=== PATIENT | male | born 1965 | race Caucasian/White ===

== ENCOUNTER 2017-07-12 07:28 | Day surgery (SDC) | payer MEDICARE, OTHER ==
[~2017-07-12 07:28] MED LIST: ALBU90OI INH; AMOCLA875 PO; ASPI81CH; CHLO25B PO; CIPR500 PO; CYCL10 PO; DIAZ5 PO; ENAL20 PO; FAMO20 PO; GABA300 PO; GLIP2.5ER PO; GUAIFENESIN1200 MG PO; HYDACE10B PO; HYDACE5325 PO; LEVO750 PO; METF500 PO; METH5 PO; METO100ER PO; METO50ER; NAPR500 PO; NICO21TP TD; OMEP20ER PO; OXYACE7.5T PO; OXYC10TA19 PO; Prednisone20 MG PO; SULTRIDS PO; TRADJENTA5 MG
== END 2017-07-12 23:18 | disposition home or self-care (01) ==
LOC: WOUND 07:28
PROC: 0HBMXZZ Excision of Right Foot Skin, External Approach (ICD-10-PCS; principal; 2017-07-12)
DX: E11.621 Type 2 diabetes mellitus with foot ulcer (principal); E11.21 Type 2 diabetes mellitus with diabetic nephropathy; L97.519 Non-pressure chronic ulcer of other part of right foot with unspecified severity; I12.0 Hypertensive chronic kidney disease with stage 5 chronic kidney disease or end stage renal disease; F17.210 Nicotine dependence, cigarettes, uncomplicated; B18.2 Chronic viral hepatitis C; E11.22 Type 2 diabetes mellitus with diabetic chronic kidney disease; N18.6 End stage renal disease; K74.60 Unspecified cirrhosis of liver; E66.9 Obesity, unspecified
CPT/HCPCS: G0463

== ENCOUNTER 2017-07-26 00:35 | Day surgery (SDC) | payer MEDICARE, OTHER | END 2017-07-26 11:10 | disposition home or self-care (01) | LOC: WOUND 00:35 | DX: Z48.00 Encounter for change or removal of nonsurgical wound dressing (principal); E11.621 Type 2 diabetes mellitus with foot ulcer; L97.419 Non-pressure chronic ulcer of right heel and midfoot with unspecified severity; E11.21 Type 2 diabetes mellitus with diabetic nephropathy; I10 Essential (primary) hypertension; F17.218 Nicotine dependence, cigarettes, with other nicotine-induced disorders; B18.2 Chronic viral hepatitis C; N18.6 End stage renal disease; K74.60 Unspecified cirrhosis of liver; E66.9 Obesity, unspecified | CPT/HCPCS: G0463 ==

== ENCOUNTER 2017-08-09 09:45 | Day surgery (SDC) | payer MEDICARE, OTHER | END 2017-08-09 10:44 | disposition home or self-care (01) | LOC: WOUND 09:45 | PROC: 0HBMXZZ Excision of Right Foot Skin, External Approach (ICD-10-PCS; principal; 2017-08-09) | DX: E11.621 Type 2 diabetes mellitus with foot ulcer (principal); L97.519 Non-pressure chronic ulcer of other part of right foot with unspecified severity; E11.22 Type 2 diabetes mellitus with diabetic chronic kidney disease; I12.0 Hypertensive chronic kidney disease with stage 5 chronic kidney disease or end stage renal disease; K74.60 Unspecified cirrhosis of liver; F17.210 Nicotine dependence, cigarettes, uncomplicated | CPT/HCPCS: 87070; 87077; 87186; 87205; 93922 ==

== ENCOUNTER 2017-08-16 08:51 | Day surgery (SDC) | payer MEDICARE, OTHER | END 2017-08-16 10:17 | disposition home or self-care (01) | LOC: WOUND 08:51 | PROC: 0HBMXZZ Excision of Right Foot Skin, External Approach (ICD-10-PCS; principal; 2017-08-16) | DX: E11.621 Type 2 diabetes mellitus with foot ulcer (principal); E11.21 Type 2 diabetes mellitus with diabetic nephropathy; I10 Essential (primary) hypertension; F17.210 Nicotine dependence, cigarettes, uncomplicated; E11.22 Type 2 diabetes mellitus with diabetic chronic kidney disease; N18.9 Chronic kidney disease, unspecified; B18.2 Chronic viral hepatitis C; K74.60 Unspecified cirrhosis of liver; L97.519 Non-pressure chronic ulcer of other part of right foot with unspecified severity | CPT/HCPCS: G0463 ==

== ENCOUNTER 2017-09-06 00:55 | Day surgery (SDC) | payer MEDICARE, OTHER | END 2017-09-06 23:35 | disposition home or self-care (01) | LOC: WOUND 00:55 | PROC: 0HBMXZZ Excision of Right Foot Skin, External Approach (ICD-10-PCS; principal; 2017-09-06) | DX: E11.621 Type 2 diabetes mellitus with foot ulcer (principal); L97.811 Non-pressure chronic ulcer of other part of right lower leg limited to breakdown of skin; E11.21 Type 2 diabetes mellitus with diabetic nephropathy; F17.210 Nicotine dependence, cigarettes, uncomplicated; B18.2 Chronic viral hepatitis C; I12.0 Hypertensive chronic kidney disease with stage 5 chronic kidney disease or end stage renal disease; N18.6 End stage renal disease; K74.60 Unspecified cirrhosis of liver | CPT/HCPCS: G0463 ==

== ENCOUNTER 2017-09-27 09:00 | Day surgery (SDC) | payer MEDICARE, OTHER | END 2017-09-27 10:24 | disposition home or self-care (01) | LOC: WOUND 09:00 | PROC: 0HBMXZZ Excision of Right Foot Skin, External Approach (ICD-10-PCS; principal; 2017-09-27) | DX: E11.621 Type 2 diabetes mellitus with foot ulcer (principal); E11.21 Type 2 diabetes mellitus with diabetic nephropathy; I10 Essential (primary) hypertension; F17.210 Nicotine dependence, cigarettes, uncomplicated; B18.2 Chronic viral hepatitis C; E11.22 Type 2 diabetes mellitus with diabetic chronic kidney disease; N18.6 End stage renal disease; K74.60 Unspecified cirrhosis of liver; L97.511 Non-pressure chronic ulcer of other part of right foot limited to breakdown of skin | CPT/HCPCS: G0463 ==

== ENCOUNTER 2017-10-11 08:46 | Day surgery (SDC) | payer MEDICARE, OTHER | END 2017-10-11 23:06 | disposition home or self-care (01) | LOC: WOUND 08:46 | PROC: 0HBMXZZ Excision of Right Foot Skin, External Approach (ICD-10-PCS; principal; 2017-10-11) | DX: E11.621 Type 2 diabetes mellitus with foot ulcer (principal); E11.21 Type 2 diabetes mellitus with diabetic nephropathy; L97.511 Non-pressure chronic ulcer of other part of right foot limited to breakdown of skin; I12.0 Hypertensive chronic kidney disease with stage 5 chronic kidney disease or end stage renal disease; F17.218 Nicotine dependence, cigarettes, with other nicotine-induced disorders; B18.2 Chronic viral hepatitis C; E11.22 Type 2 diabetes mellitus with diabetic chronic kidney disease; N18.6 End stage renal disease; K74.60 Unspecified cirrhosis of liver | CPT/HCPCS: G0463 ==

== ENCOUNTER 2017-11-02 08:46 | Day surgery (SDC) | payer MEDICARE, OTHER | END 2017-11-02 10:26 | disposition home or self-care (01) | LOC: WOUND 08:46 | DX: E11.621 Type 2 diabetes mellitus with foot ulcer (principal); L97.511 Non-pressure chronic ulcer of other part of right foot limited to breakdown of skin; E11.21 Type 2 diabetes mellitus with diabetic nephropathy; F17.210 Nicotine dependence, cigarettes, uncomplicated; I12.0 Hypertensive chronic kidney disease with stage 5 chronic kidney disease or end stage renal disease; N18.6 End stage renal disease | CPT/HCPCS: G0463 ==

== ENCOUNTER 2018-09-28 00:35 | Day surgery (SDC) | payer MEDICARE, OTHER | END 2018-09-28 23:19 | disposition home or self-care (01) | LOC: WOUND 00:35 | DX: E11.621 Type 2 diabetes mellitus with foot ulcer (principal); L97.529 Non-pressure chronic ulcer of other part of left foot with unspecified severity; L89.892 Pressure ulcer of other site, stage 2; I10 Essential (primary) hypertension; G47.33 Obstructive sleep apnea (adult) (pediatric); E11.40 Type 2 diabetes mellitus with diabetic neuropathy, unspecified; G40.909 Epilepsy, unspecified, not intractable, without status epilepticus ==

== ENCOUNTER 2018-10-06 09:30 | Day surgery (SDC) | payer MEDICARE, OTHER | END 2018-10-06 23:01 | disposition home or self-care (01) | LOC: WOUND 09:30 | DX: L89.892 Pressure ulcer of other site, stage 2 (principal); L03.032 Cellulitis of left toe; E11.40 Type 2 diabetes mellitus with diabetic neuropathy, unspecified; I10 Essential (primary) hypertension; G47.33 Obstructive sleep apnea (adult) (pediatric) | CPT/HCPCS: G0463 ==

== ENCOUNTER → 2018-12-11 | Outpatient (CLI) | payer MEDICARE, OTHER ==
[2018-12-11 15:12] LABS: Protein, Urine Quantitative 24.8 mg/dL (0.0-11.9)
[2018-12-11 15:19] LABS: Microalbumin, Urine Quant. 21.4 mg/L (0.000-20.000)
== END | disposition home or self-care (01) ==
LOC: LAB 10:45 → LAB SHORT 10:45
PROVIDERS: Internal Medicine Nephrology
DX: E55.9 Vitamin D deficiency, unspecified (principal); N18.3 Chronic kidney disease, stage 3 (moderate); D63.1 Anemia in chronic kidney disease; N25.81 Secondary hyperparathyroidism of renal origin; E78.00 Pure hypercholesterolemia, unspecified; R76.9 Abnormal immunological finding in serum, unspecified; R94.5 Abnormal results of liver function studies; R94.6 Abnormal results of thyroid function studies
CPT/HCPCS: 81050; 82043; 82570; 84156

== ENCOUNTER → 2020-10-30 | Outpatient (CLI) | payer MEDICARE, OTHER | END | disposition home or self-care (01) | LOC: LAB 12:39 → LAB SHORT 12:39 | DX: E11.42 Type 2 diabetes mellitus with diabetic polyneuropathy (principal); E11.610 Type 2 diabetes mellitus with diabetic neuropathic arthropathy; E11.621 Type 2 diabetes mellitus with foot ulcer; L97.509 Non-pressure chronic ulcer of other part of unspecified foot with unspecified severity; L02.611 Cutaneous abscess of right foot; Z79.4 Long term (current) use of insulin | CPT/HCPCS: 87070; 87077; 87186; 87205 ==

== ENCOUNTER 2021-12-11 13:55 | Inpatient (IN) | payer MEDICARE, OTHER ==
[~2021-12-11] VITALS: Ht 195.6 cm; Wt 103.0 kg
[~2021-12-11 13:55] MED LIST changes: +Chantix1 MG PO; -METH5 PO; -METO100ER PO; -TRADJENTA5 MG
[2021-12-11 15:43] LABS: BASOPHILS ABSOLUTE AUTO 0.04 K/mm3 (0.00-0.23); BASOPHILS PERCENT AUTO 0 % (0-2); EOSINOPHILS ABSOLUTE AUTO 0.28 K/mm3 (0.00-0.68); EOSINOPHILS PERCENT AUTO 3 % (0-6); Hematocrit 44.2 % (37.0-53.0); Hemoglobin 14.9 g/dL (13.5-17.5); IMMATURE GRAN ABSOLUTE AUTO 0.04 K/mm3 (0.00-0.10); IMMATURE GRAN PERCENT AUTO 0 % (0-1); LYMPHOCYTES ABSOLUTE AUTO 2.17 K/mm3 (0.84-5.20); LYMPHOCYTES PERCENT AUTO 22 % (21-46); MONOCYTES PERCENT AUTO 8 % (4-13); Mean Corpuscular HGB 28.8 pg (26.0-34.0); Mean Corpuscular HGB Conc 33.7 g/dL (31.5-36.5); Mean Corpuscular Volume 85 fL (80-100); Mean Platelet Volume 9.5 fL (9.1-12.4); NEUTROPHILS ABSOLUTE AUTO 6.34 K/mm3 (1.96-9.15); NEUTROPHILS PERCENT AUTO 66 % (41-73); Platelet Count 261 K/mm3 (150-400); RDW Coefficient Variation 17.3 % (11.7-14.2); RDW Standard Deviation 54.8 fL (35.1-46.3); Red Blood Cell Count 5.18 M/mm3 (4.30-5.90); White Blood Cell Count 9.67 K/mm3 (4.00-11.30)
[2021-12-11 16:03] LABS: Albumin, Blood 3.9 g/dL (3.4-5.0); Bilirubin, Total 0.3 mg/dL (0.1-1.0); Calcium, Blood 8.8 mg/dL (8.5-10.1); Creatinine, Blood 6.22 mg/dL (0.60-1.20); Potassium, Blood 5.2 mmol/L (3.5-5.5); Total Protein, Blood 7.9 g/dL (6.4-8.2)
[2021-12-11] MEDS ORDERED: CELE200 PO (18:10)
[2021-12-11] MEDS ORDERED: Enalapril Malea20 MG PO (18:11)
[2021-12-11] MEDS ORDERED: CHLO25B PO (18:11)
[2021-12-11] MEDS ORDERED: CYCL10 PO (18:12)
[2021-12-11] MEDS ORDERED: GABA300 PO (18:12)
[2021-12-11] MEDS ORDERED: METO100 PO (18:13)
[2021-12-11] MEDS ORDERED: Glucophage 850850 MG PO (18:13)
[2021-12-11] MEDS ORDERED: METHADONE HCL10 M9 PO (18:14)
[2021-12-11 18:17] LABS: Source, Urine Clean Catch
[2021-12-11] MEDS ORDERED: ROXICODONE15 MG PO (18:17)
[2021-12-11] MEDS ORDERED: TRADJENTA5 MG PO (18:17)
[2021-12-11] MEDS ORDERED: GLIP2.5ER PO (18:18)
[2021-12-11] MEDS ORDERED: DEPO-TESTO200 MG/18 IM (18:19)
[2021-12-11] MEDS ORDERED: OMEP20ER PO (18:19)
[2021-12-11] MEDS ORDERED: Viagra100 MG PO (18:24)
[2021-12-11 18:25] LABS: Appearance, Urine Clear (Clear); Bilirubin, Urine Neg (Neg); Blood, Urine Neg (Neg); Glucose Qualitative, Urine Neg (Neg); Ketones, Urine Neg (Neg); Leukocyte Esterase, Urine Neg (Neg); Nitrite, Urine Neg (Neg); Protein, Urine Neg (Neg); Specific Gravity, Urine 1.015 (1.003-1.022); Urobilinogen, Urine NORM (Normal)
[2021-12-11 18:35] LABS: Color, Urine Pale Yellow (P-Yellow)
[2021-12-12 05:07] LABS: BASOPHILS ABSOLUTE AUTO 0.03 K/mm3 (0.00-0.23); BASOPHILS PERCENT AUTO 0 % (0-2); EOSINOPHILS ABSOLUTE AUTO 0.34 K/mm3 (0.00-0.68); EOSINOPHILS PERCENT AUTO 5 % (0-6); Hematocrit 41.8 % (37.0-53.0); Hemoglobin 13.9 g/dL (13.5-17.5); IMMATURE GRAN ABSOLUTE AUTO 0.03 K/mm3 (0.00-0.10); IMMATURE GRAN PERCENT AUTO 0 % (0-1); LYMPHOCYTES ABSOLUTE AUTO 1.68 K/mm3 (0.84-5.20); LYMPHOCYTES PERCENT AUTO 22 % (21-46); MONOCYTES ABSOLUTE AUTO 0.71 K/mm3 (0.16-1.47); MONOCYTES PERCENT AUTO 9 % (4-13); Mean Corpuscular HGB 28.7 pg (26.0-34.0); Mean Corpuscular HGB Conc 33.3 g/dL (31.5-36.5); Mean Corpuscular Volume 86 fL (80-100); Mean Platelet Volume 9.6 fL (9.1-12.4); NEUTROPHILS ABSOLUTE AUTO 4.85 K/mm3 (1.96-9.15); NEUTROPHILS PERCENT AUTO 63 % (41-73); Platelet Count 202 K/mm3 (150-400); RDW Coefficient Variation 17.3 % (11.7-14.2); RDW Standard Deviation 54.7 fL (35.1-46.3); Red Blood Cell Count 4.85 M/mm3 (4.30-5.90); White Blood Cell Count 7.64 K/mm3 (4.00-11.30)
[2021-12-12 05:34] LABS: Alanine Aminotransfer (ALT/SGP 18 U/L (12-78); Albumin, Blood 3.2 g/dL (3.4-5.0); Alk Phos 73 U/L (50-136); Anion Gap 6 mmol/L (6-16); Aspartate Aminotrans (AST/SGOT 18 U/L (12-37); Bilirubin, Total 0.2 mg/dL (0.1-1.0); Blood Urea Nitrogen 46 mg/dL (8-24); Bun/Creatinine Ratio 12.3 (12.0-20.0); CO2, Blood 25 mmol/L (21-32); Calcium, Blood 7.7 mg/dL (8.5-10.1); Chloride, Blood 103 mmol/L (98-108); Creatinine, Blood 3.75 mg/dL (0.60-1.20); Globulin, Blood 3.3 g/dL (2.2-4.0); Glomerular Filtration Rate 18 (60-); Glucose, Blood 99 mg/dL (70-99); Magnesium, Blood 3.4 mg/dL (1.6-2.4); Potassium, Blood 4.8 mmol/L (3.5-5.5); Sodium, Blood 134 mmol/L (136-145); Total Protein, Blood 6.5 g/dL (6.4-8.2)
[2021-12-12 16:24] LABS: Albumin, Blood 3.3 g/dL (3.4-5.0); Anion Gap 3 mmol/L (6-16); Blood Urea Nitrogen 35 mg/dL (8-24); Bun/Creatinine Ratio 13.5 (12.0-20.0); CO2, Blood 26 mmol/L (21-32); Calcium, Blood 8.2 mg/dL (8.5-10.1); Chloride, Blood 106 mmol/L (98-108); Glomerular Filtration Rate 28 (60-); Glucose, Blood 117 mg/dL (70-99); Magnesium, Blood 2.7 mg/dL (1.6-2.4); Potassium, Blood 4.8 mmol/L (3.5-5.5); Sodium, Blood 135 mmol/L (136-145)
--- NOTE | 2021-12-12 17:05 | NUR ---
SHIFT SUMMARY- PT INDEPENDANT IN ROOM, FAMILY AT BEDSIDE. PT INFUSING NS, SEE EMAR THROUGHOUT SHIFT. VSS. A&O X4. PT C/O PAIN MEDICATED PER EMAR. PT RESTING NOW WITH CALL LIGHT IN REACH AND BED IN LOWEST POSITION.
[2021-12-12] MEDS ORDERED: NICO21TP TOP (17:41)
[2021-12-12] MEDS ORDERED: Acetaminophen325 M1 PO (17:41)
[2021-12-12] MEDS ORDERED: TAMS.4ER PO (17:43)
--- NOTE | 2021-12-12 18:41 | NUR ---
PT D/C WITH FAMILY, PAPERWORK IN HAND. ALL BELONGINGS WITH PT. TRANSPORTED VIA WHEELCHAIR TO [facility].
== END 2021-12-12 18:26 | disposition home or self-care (01) | DRG 683 ==
LOC: ER 13:55 → MEDS 13:56
PROVIDERS: Physician Assistant; ADMIT Family Medicine
DX: N17.9 Acute kidney failure, unspecified (principal); E87.1 Hypo-osmolality and hyponatremia; N18.4 Chronic kidney disease, stage 4 (severe); E11.22 Type 2 diabetes mellitus with diabetic chronic kidney disease; E87.5 Hyperkalemia; F17.210 Nicotine dependence, cigarettes, uncomplicated; N40.1 Benign prostatic hyperplasia with lower urinary tract symptoms; R33.8 Other retention of urine; E29.1 Testicular hypofunction; B19.20 Unspecified viral hepatitis C without hepatic coma; Z98.890 Other specified postprocedural states; Z79.899 Other long term (current) drug therapy; Z79.84 Long term (current) use of oral hypoglycemic drugs; I12.9 Hypertensive chronic kidney disease with stage 1 through stage 4 chronic kidney disease, or unspecified chronic kidney disease; F12.90 Cannabis use, unspecified, uncomplicated; E11.40 Type 2 diabetes mellitus with diabetic neuropathy, unspecified; E83.42 Hypomagnesemia; E86.0 Dehydration
CPT/HCPCS: 36415; 76770; 80048; 80053; 80069; 81003; 82947; 83036; 83690; 83735; 83880; 84153; 85025; 93005; 93010; 96360; 96361; 96372; 99284-25; A9270; G0378; J1644; J7030

== ENCOUNTER 2022-11-14 12:46 | Emergency (ER) | payer MEDICARE, OTHER ==
[~2022-11-14] VITALS: Ht 195.6 cm; Wt 104.3 kg
[~2022-11-14 12:46] MED LIST changes: +Acetaminophen325 M1 PO; +CELE200 PO; +DEPO-TESTO200 MG/18 IM; +Enalapril Malea20 MG PO; +Glucophage 850850 MG PO; +METHADONE HCL10 M9 PO; +METO100 PO; +NICO21TP TOP; +ROXICODONE15 MG PO; +TAMS.4ER PO; +TRADJENTA5 MG PO; +Viagra100 MG PO
[2022-11-14 13:30] LABS: BASOPHILS ABSOLUTE AUTO 0.03 K/mm3 (0.00-0.23); BASOPHILS PERCENT AUTO 0 % (0-2); EOSINOPHILS ABSOLUTE AUTO 0.18 K/mm3 (0.00-0.68); EOSINOPHILS PERCENT AUTO 2 % (0-6); Hematocrit 43.7 % (37.0-53.0); Hemoglobin 14.4 g/dL (13.5-17.5); IMMATURE GRAN ABSOLUTE AUTO 0.04 K/mm3 (0.00-0.10); IMMATURE GRAN PERCENT AUTO 1 % (0-1); LYMPHOCYTES ABSOLUTE AUTO 0.69 K/mm3 (0.84-5.20); LYMPHOCYTES PERCENT AUTO 8 % (21-46); MONOCYTES PERCENT AUTO 2 % (4-13); Mean Corpuscular HGB 27.7 pg (26.0-34.0); Mean Corpuscular Volume 84 fL (80-100); Mean Platelet Volume 9.6 fL (9.1-12.4); NEUTROPHILS ABSOLUTE AUTO 7.25 K/mm3 (1.96-9.15); NEUTROPHILS PERCENT AUTO 86 % (41-73); Platelet Count 228 K/mm3 (150-400); RDW Coefficient Variation 16.7 % (11.7-14.2); RDW Standard Deviation 51.2 fL (35.1-46.3); Red Blood Cell Count 5.19 M/mm3 (4.30-5.90); White Blood Cell Count 8.39 K/mm3 (4.00-11.30)
[2022-11-14 13:52] LABS: Albumin, Blood 3.9 g/dL (3.4-5.0); Bilirubin, Total 0.3 mg/dL (0.1-1.0); Bun/Creatinine Ratio 10.8 (12.0-20.0); Creatinine, Blood 1.76 mg/dL (0.60-1.20); Potassium, Blood 5.2 mmol/L (3.5-5.5); Total Protein, Blood 7.9 g/dL (6.4-8.2)
[2022-11-14 14:00] VITALS: BP 136/77
[2022-11-14] MEDS ORDERED: Flonase 0.05% N16 GM (14:36)
[2022-11-14] MEDS ORDERED: ALLEGRA ALLERGY60 MG PO (14:36)
[2022-11-14] MEDS ORDERED: Mupirocin22 GM TOP (14:36)
== END 2022-11-14 14:44 | disposition home or self-care (01) ==
LOC: ER 12:46
PROVIDERS: Emergency Medicine
DX: J30.9 Allergic rhinitis, unspecified (principal); Z79.1 Long term (current) use of non-steroidal anti-inflammatories (NSAID); F17.210 Nicotine dependence, cigarettes, uncomplicated; I12.9 Hypertensive chronic kidney disease with stage 1 through stage 4 chronic kidney disease, or unspecified chronic kidney disease; E11.22 Type 2 diabetes mellitus with diabetic chronic kidney disease; N18.30 Chronic kidney disease, stage 3 unspecified; E11.42 Type 2 diabetes mellitus with diabetic polyneuropathy; Z86.19 Personal history of other infectious and parasitic diseases
CPT/HCPCS: 80053; 85025; 99283

== ENCOUNTER 2022-12-02 03:43 | Day surgery (SDC) | payer MEDICARE, OTHER ==
[~2022-12-02 03:43] MED LIST changes: +ALLEGRA ALLERGY60 MG PO; +Flonase 0.05% N16 GM; +Mupirocin22 GM TOP
== END 2022-12-02 22:59 | disposition home or self-care (01) ==
LOC: WOUND 03:43
DX: T23.031D Burn of unspecified degree of multiple right fingers (nail), not including thumb, subsequent encounter (principal); E11.21 Type 2 diabetes mellitus with diabetic nephropathy; E11.51 Type 2 diabetes mellitus with diabetic peripheral angiopathy without gangrene; I10 Essential (primary) hypertension; G47.33 Obstructive sleep apnea (adult) (pediatric); Z72.0 Tobacco use
CPT/HCPCS: 99406; A9270; G0463

== ENCOUNTER 2023-01-29 15:39 | Emergency (ER) | payer MEDICARE, OTHER ==
[~2023-01-29] VITALS: Ht 195.6 cm; Wt 102.1 kg
[2023-01-29 15:47] VITALS: BP 99/75
== END 2023-01-29 18:36 | disposition home or self-care (01) ==
LOC: ER 15:39
DX: S81.811A Laceration without foreign body, right lower leg, initial encounter (principal); E11.9 Type 2 diabetes mellitus without complications; I10 Essential (primary) hypertension; F17.210 Nicotine dependence, cigarettes, uncomplicated; W26.9XXA Contact with unspecified sharp object(s), initial encounter; Z79.899 Other long term (current) drug therapy
CPT/HCPCS: 12004; 90471; 90715; 99282-25

== ENCOUNTER 2023-07-04 15:02 | Inpatient (IN) | payer MEDICARE, OTHER ==
[~2023-07-04] VITALS: Ht 195.6 cm; Wt 108.0 kg
[2023-07-04 16:34] LABS: BASOPHILS ABSOLUTE AUTO 0.02 K/mm3 (0.00-0.23); BASOPHILS PERCENT AUTO 0 % (0-2); EOSINOPHILS ABSOLUTE AUTO 0.01 K/mm3 (0.00-0.68); EOSINOPHILS PERCENT AUTO 0 % (0-6); Hematocrit 35.9 % (37.0-53.0); Hemoglobin 10.8 g/dL (13.5-17.5); IMMATURE GRAN ABSOLUTE AUTO 0.07 K/mm3 (0.00-0.10); IMMATURE GRAN PERCENT AUTO 1 % (0-1); LYMPHOCYTES ABSOLUTE AUTO 0.67 K/mm3 (0.84-5.20); LYMPHOCYTES PERCENT AUTO 6 % (21-46); MONOCYTES ABSOLUTE AUTO 0.61 K/mm3 (0.16-1.47); MONOCYTES PERCENT AUTO 6 % (4-13); Mean Corpuscular HGB 23.7 pg (26.0-34.0); Mean Corpuscular HGB Conc 30.1 g/dL (31.5-36.5); Mean Corpuscular Volume 79 fL (80-100); Mean Platelet Volume 9.3 fL (9.1-12.4); NEUTROPHILS ABSOLUTE AUTO 9.43 K/mm3 (1.96-9.15); NEUTROPHILS PERCENT AUTO 87 % (41-73); Platelet Count 292 K/mm3 (150-400); RDW Coefficient Variation 18.3 % (11.7-14.2); RDW Standard Deviation 52.2 fL (35.1-46.3); Red Blood Cell Count 4.56 M/mm3 (4.30-5.90); White Blood Cell Count 10.81 K/mm3 (4.00-11.30)
[2023-07-04 16:58] LABS: Albumin, Blood 3.5 g/dL (3.4-5.0); Albumin/Globulin Ratio 0.8 (0.8-1.8); Bilirubin, Total 0.4 mg/dL (0.1-1.0); Bun/Creatinine Ratio 10.9 (12.0-20.0); Calcium, Blood 9.2 mg/dL (8.5-10.1); Creatinine, Blood 1.74 mg/dL (0.60-1.20); Globulin, Blood 4.5 g/dL (2.2-4.0); Potassium, Blood 4.8 mmol/L (3.5-5.5)
[2023-07-04] MEDS ORDERED: OxyCODONE HCL 5 MG TAB PO ONE (22:25)
[2023-07-04] MEDS ORDERED: Ketorolac Tromethamine 30mg Vial IV ONE (22:25)
[2023-07-04] MEDS ORDERED: CeFAZolin 1000MG in D5W 50 ML IV ONE (23:25)
[2023-07-04] MEDS ORDERED: CeFAZolin Sodium 1,000 MG in NS 50 ML IV ONE (23:35)
[2023-07-04] MEDS ORDERED: Acetaminophen 325 MG TABLET PO PRN (23:40)
[2023-07-04] MEDS ORDERED: Ondansetron HCl 2 MG / ML 2ML Vial IV PRN (23:45)
[2023-07-04] MEDS ORDERED: MethylPREDNISolone Sod Succ 125 MG Vial IV ONE (23:45)
[2023-07-04] MEDS ORDERED: Nicotine 21 MG PATCH TOP ONE (23:45)
[2023-07-04] MEDS ORDERED: FentaNYL Citrate 50 MCG/ML 2 ML Injection IV PRN (23:45)
[2023-07-04] MEDS ORDERED: FLU VACC QS2023-24(6MOS UP)/PF 60 MCG/0.5 ML SYRINGE IM ONE (23:45)
[2023-07-05] VITALS (12 sets, daily range): BP systolic 111–188; BP diastolic 58–104
[2023-07-05 00:23] LABS: BASOPHILS ABSOLUTE AUTO 0.02 K/mm3 (0.00-0.23); BASOPHILS PERCENT AUTO 0 % (0-2); EOSINOPHILS ABSOLUTE AUTO 0.03 K/mm3 (0.00-0.68); EOSINOPHILS PERCENT AUTO 0 % (0-6); Hematocrit 34.2 % (37.0-53.0); Hemoglobin 10.4 g/dL (13.5-17.5); IMMATURE GRAN ABSOLUTE AUTO 0.04 K/mm3 (0.00-0.10); IMMATURE GRAN PERCENT AUTO 0 % (0-1); LYMPHOCYTES ABSOLUTE AUTO 1.59 K/mm3 (0.84-5.20); LYMPHOCYTES PERCENT AUTO 16 % (21-46); MONOCYTES ABSOLUTE AUTO 0.93 K/mm3 (0.16-1.47); MONOCYTES PERCENT AUTO 9 % (4-13); Mean Corpuscular HGB 23.5 pg (26.0-34.0); Mean Corpuscular HGB Conc 30.4 g/dL (31.5-36.5); Mean Corpuscular Volume 77 fL (80-100); NEUTROPHILS ABSOLUTE AUTO 7.68 K/mm3 (1.96-9.15); NEUTROPHILS PERCENT AUTO 75 % (41-73); Platelet Count 275 K/mm3 (150-400); RDW Coefficient Variation 18.3 % (11.7-14.2); RDW Standard Deviation 50.3 fL (35.1-46.3); Red Blood Cell Count 4.42 M/mm3 (4.30-5.90); White Blood Cell Count 10.29 K/mm3 (4.00-11.30)
[2023-07-05 00:44] LABS: Albumin, Blood 3.3 g/dL (3.4-5.0); Albumin/Globulin Ratio 0.8 (0.8-1.8); Bilirubin, Total 0.5 mg/dL (0.1-1.0); Bun/Creatinine Ratio 10.9 (12.0-20.0); Calcium, Blood 8.9 mg/dL (8.5-10.1); Creatinine, Blood 1.65 mg/dL (0.60-1.20); Globulin, Blood 4.3 g/dL (2.2-4.0); Potassium, Blood 4.6 mmol/L (3.5-5.5); Total Protein, Blood 7.6 g/dL (6.4-8.2)
[2023-07-05] MEDS ORDERED: NS 1,000 ML IV SCH (00:45)
[2023-07-05] MEDS ORDERED: HYDROmorphone HCl/Pf 1MG SYR IV ONE (00:50)
[2023-07-05] MEDS ORDERED: DEPO-TESTO200 MG/18 IM (02:04)
[2023-07-05] MEDS ORDERED: Glucophage 850850 MG PO (02:07)
[2023-07-05] MEDS ORDERED: FUROSEMIDE20 MG PO (02:10)
[2023-07-05] MEDS ORDERED: Mobic15 MG PO (02:11)
--- NOTE | 2023-07-05 03:54 | NUR ---
DR CONTRERAS ORDERED ORTHO CONSULT RE RIGHT HAND. CALL PLACED TO MD ANS SERVICE. "[facility]" TO NOTIFY .
--- NOTE | 2023-07-05 04:00 | NUR ---
DEV TECHNICAL MGR SUMMARY WAS ADMITTED EARLIER IN THE SHIFT WITH DX OF RIGHT HAND CELLULITIS. NOTE DRESSINGS OF 2 FINGER TIPS OF RIGHT HAND. ED RN REPORTED TIPS WERE AMPUTATED A WHILE BACK AND DRESSINGS WERE CHANGED IN THE ED. PT ANGRY AND REFUSED SKIN CHECK. AT BEDSIDE SAID HE DIDNT HAVE ANY WOUNDS/SORES. HX DM; 3 PK/DAY SMOKER; AND CONSTANT BACK PAIN - ED RN REPORTED HX TAKES NARCOTICS FOR PAIN. PAIN MEDS GIVEN IN THE ED. IVF OF NS INFUSING AT 75 ML/HR. UP AD ABBY. CALL LIGHT IN REACH. BP ELEVATED, OTHERWISE VSS. HAS BEEN RESTING QUIETLY WITH FEW INTERRUPTIONS SINCE.RAILS UP X 2 FOR SAFETY.
[2023-07-05] MEDS ORDERED: Clindamycin 900mg in D5W 50ML 50 ML IV SCH ×2 (04:25)
[2023-07-05] MEDS ORDERED: Cyclobenzaprine HCl 10 MG Tab PO PRN (06:35)
[2023-07-05] MEDS ORDERED: Methadone HCL 10 MG TAB PO PRN (06:40)
[2023-07-05] MEDS ORDERED: Metoprolol Tartrate 50 MG Tab PO SCH (08:00)
[2023-07-05] MEDS ORDERED: Gabapentin 300 MG Cap PO SCH (09:00)
[2023-07-05] MEDS ORDERED: Enalapril Maleate 5 MG Tab PO SCH (09:00)
[2023-07-05] MEDS ORDERED: Tamsulosin HCl 0.4 MG Cap PO SCH (09:00)
[2023-07-05] MEDS ORDERED: Omeprazole 20 MG CapCR PO SCH (09:00)
[2023-07-05] MEDS ORDERED: Furosemide 20 MG Tab PO SCH (09:00)
[2023-07-05] MEDS ORDERED: Nicotine 21 MG PATCH TOP SCH (10:00)
[2023-07-05] MEDS ORDERED: Lactated Ringer's 1,000 ML IV SCH (11:05)
[2023-07-05] MEDS ORDERED: FentaNYL Citrate 50 MCG/ML 2 ML Injection ONE (12:02)
[2023-07-05] MEDS ORDERED: propofoL 20 ML IV ONE (12:02)
[2023-07-05] MEDS ORDERED: Midazolam HCl 1MG / ML 2ML Vial IV ONE (13:55)
[2023-07-05] MEDS ORDERED: Midazolam HCl 1MG / ML 2ML Vial ONE (13:59)
--- NOTE | 2023-07-05 14:03 | NUR ---
History, Chart, Medications and Allergies reviewed before start of procedure. Patient up to Ambulate independently. Gait steady. Pre-Op teaching done. Pt verbalizes understanding. Patient confirms NPO status and agrees with scheduled surgery.
--- NOTE | 2023-07-05 14:04 | NUR ---
TELE MONITOR OFF & TX TO PACU, WHEEL ADJUSTER NOTIFIED.
[2023-07-05] MEDS ORDERED: Dexamethasone Sod Phos 10 MG/ML 1ML VIAL ONE (14:14)
[2023-07-05] MEDS ORDERED: Ondansetron HCl 2 MG / ML 2ML Vial ONE (14:14)
[2023-07-05] MEDS ORDERED: Bupivacaine 0.5% HCl 5 MG/ML 30MLVIAL ONE (14:36)
[2023-07-05] MEDS ORDERED: HYDROmorphone HCl/Pf 1MG SYR IV PRN (14:50)
[2023-07-05] MEDS ORDERED: Ondansetron HCl 2 MG / ML 2ML Vial IV PRN (14:50)
[2023-07-05] MEDS ORDERED: FentaNYL Citrate 50 MCG/ML 2 ML Injection IV PRN ×2 (14:50)
[2023-07-05] MEDS ORDERED: Phenylephrine HCl 100 MCG/ML-NS 10MLSYR (1MG/10ML) ONE (15:03)
[2023-07-05] MEDS ORDERED: EpiNEPhrine 1 MG/1 ML 1ML Vial ONE (15:20)
--- NOTE | 2023-07-05 18:43 | NUR ---
SHIFT SUMMARY: PT A&O X4. PT VERY AGITATED/ANXIOUS/ANGRY THIS AM D/T PAIN AND MEDICATIONS NOT BEING CORRECT. SPOKE WITH DR. CROSS REGARDING NICOTINE PATCH AND METFORMIN. METFORMIN TO BE HELD FOR NOW D/T NPO STATUS. DR. MOLINA ARRIVED TO CONSULT PT THIS AM FOR R. ARM CELLULITIS. 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 I&D SUGGESTED AND COMPLETED THIS AFTERNOON. PT STATES HE IS FEELING MUCH BETTER AND ABLE TO MOVE FINGERS MORE. MEDICATED ONCE SINCE SURGERY. PT PLEASANT AND COOPERATIVE NOW. SURGERY PLACED NEW IV IN L. WRIST. IV ABX INFUSING W/O COMPLICATIONS. PT HAD ELEVATED BLOOD PRESSURE. MEDICATED PER EMAR. AT BEDSIDE. CALL LIGHT IN REACH. BED IN LOWEST POSITION. INDEPENDENT IN ROOM. WILL REPORT TO ONCOMING RN.
--- NOTE | 2023-07-06 03:09 | NUR ---
PLANT SAFETY LEADER SUMMARY POST OP I AND D OF RIGHT HAND YESTERDAY AM. BP ELEVATED BUT TRENDING DOWN. ANTIHYPERTENSIVES AND PAIN MEDS ADMINISTERED ORDERED, SEE JUL FOR DETAILS. CONTINUES TO VERBALIZE NEUROPATHY OF ALL 4 EXT. DRESSING OF RIGHT HAND/ARM CDI. ANTIBIOTICS CONTINUE. HAS BEEN RESTING QUITELY WITH INTERMITTENT BOUTS OF TRIPS TO BATHROOM. VOICED THAT THE MEDS SEEM TO BE HELPING SOME RE PAIN AND HAND SWELLING. AT BEDSIDE FOR SUPPORT. CALL LIGHT IN REACH. RAILS UP X 2 FOR SAFETY. WILL CONTINUE TO MONITOR
[2023-07-06 03:40] VITALS: BP 184/79
[2023-07-06] MEDS ORDERED: HydrALAZINE HCl 20 MG / ML 1ML Vial IV PRN (07:35)
[2023-07-06 07:43] VITALS: BP 203/92
[2023-07-06 07:46] VITALS: BP 201/93
[2023-07-06] MEDS ORDERED: NS 250 ML IV PRN (08:10)
[2023-07-06 08:57] VITALS: BP 172/84
[2023-07-06] MEDS ORDERED: Nicotine 21 MG PATCH TOP SCH (09:00)
[2023-07-06] MEDS ORDERED: Lactobacil 2-S.Thermo-Bifido 1 1 Cap PO SCH (09:00)
[2023-07-06] MEDS ORDERED: Insulin Human Lispro 100 Units/ML 3ML Syringe SC SCH (11:30)
[2023-07-06] MEDS ORDERED: VISBIOME 112.51 EACH PO (15:19)
[2023-07-06] MEDS ORDERED: AMOCLA875 PO (15:20)
[2023-07-06] MEDS ORDERED: SULTRIDS PO (15:20)
--- NOTE | 2023-07-06 16:18 | NUR ---
DC HOME WRITTEN & VERBAL DC INSTRUCTIONS GIVEN TO PT WITH PT'S PRESENT, BOTH VERBALIZED GOOD UNDERSTANDING. ALL CONCERNS & QUESTIONS ADDRESSED. NEW MED SCRIPTS FAXED TO [facility] PER PT REQUEST. OUT PT WOUND CLINIC FOLLOW UP ENCOURAGED, PT HAS PREVIOUS REFERRAL IN PLACE. EMPHASIZED IMPORTANCE OF MD FOLLOW UP APPOINTMENTS. PIV DC'D WITH CATH TIP INTACT, NO REDNESS OR SWELLING NOTED. SURGICAL DRESSING ON R FA C/D/I. PT HOME WITH ALL PERSONAL BELONGINGS ACCOMPANIED BY & SONS.
== END 2023-07-06 16:14 | disposition home or self-care (01) | DRG 501 ==
LOC: ER 15:02 → MEDS 07-05 00:33
PROVIDERS: Orthopaedic Surgery Sports Medicine; Student in an Organized Health Care Education/Training Program; ADMIT Internal Medicine
PROC: 01N50ZZ Release Median Nerve, Open Approach (ICD-10-PCS; 2023-07-05)
PROC: 0LB50ZZ Excision of Right Lower Arm and Wrist Tendon, Open Approach (ICD-10-PCS; principal; 2023-07-05 13:00)
DX: M65.841 Other synovitis and tenosynovitis, right hand (principal); L02.413 Cutaneous abscess of right upper limb; L03.113 Cellulitis of right upper limb; E11.22 Type 2 diabetes mellitus with diabetic chronic kidney disease; N40.0 Benign prostatic hyperplasia without lower urinary tract symptoms; K21.9 Gastro-esophageal reflux disease without esophagitis; G89.29 Other chronic pain; E11.40 Type 2 diabetes mellitus with diabetic neuropathy, unspecified; N18.30 Chronic kidney disease, stage 3 unspecified; F17.210 Nicotine dependence, cigarettes, uncomplicated; Z86.14 Personal history of Methicillin resistant Staphylococcus aureus infection; I12.9 Hypertensive chronic kidney disease with stage 1 through stage 4 chronic kidney disease, or unspecified chronic kidney disease; Z98.890 Other specified postprocedural states; B19.20 Unspecified viral hepatitis C without hepatic coma; Z89.021 Acquired absence of right finger(s); Z79.899 Other long term (current) drug therapy; Z79.84 Long term (current) use of oral hypoglycemic drugs; Z71.6 Tobacco abuse counseling; Z87.39 Personal history of other diseases of the musculoskeletal system and connective tissue
CPT/HCPCS: 36415; 73090; 73130; 80053; 82947; 85025; 85651; 86140; 87070; 87071; 87075; 87205; 93971; 94760; 96365; 96375; 99284-25; A9270; J0171; J0690; J1100; J1170; J1885; J2250; J2371; J2405; J2704; J2930; J3010; J7030; J7050; J7120

== ENCOUNTER 2023-08-10 02:45 | Day surgery (SDC) | payer MEDICARE, OTHER ==
[~2023-08-10 02:45] MED LIST changes: +FUROSEMIDE20 MG PO; +Mobic15 MG PO; +VISBIOME 112.51 EACH PO
[2023-08-10] MEDS ORDERED: DAPTOmycin 400 MG in NS 50 ML IV SCH (06:00)
[2023-08-10 11:09] VITALS: BP 139/78
[2023-08-10 12:21] LABS: Albumin, Blood 3.7 g/dL (3.4-5.0); Anion Gap 7 mmol/L (3-11); Blood Urea Nitrogen 15 mg/dL (8-24); Bun/Creatinine Ratio 9.9 (12.0-20.0); CO2, Blood 30 mmol/L (21-32); Calcium, Blood 9.1 mg/dL (8.5-10.1); Chloride, Blood 107 mmol/L (98-108); Creatinine, Blood 1.51 mg/dL (0.60-1.20); Glomerular Filtration Rate 53 (60-); Glucose, Blood 80 mg/dL (70-99); Phosphorus, Blood 3.7 mg/dL (2.5-4.9); Sodium, Blood 140 mmol/L (136-145)
== END 2023-08-10 11:30 | disposition home or self-care (01) ==
LOC: ATC 02:45
PROVIDERS: Family Medicine
DX: E11.69 Type 2 diabetes mellitus with other specified complication (principal); M86.441 Chronic osteomyelitis with draining sinus, right hand; S50.811D Abrasion of right forearm, subsequent encounter; L08.9 Local infection of the skin and subcutaneous tissue, unspecified; I10 Essential (primary) hypertension; E11.40 Type 2 diabetes mellitus with diabetic neuropathy, unspecified; K21.9 Gastro-esophageal reflux disease without esophagitis; X58.XXXD Exposure to other specified factors, subsequent encounter
CPT/HCPCS: 80069; 96365; 99211; J0878

== ENCOUNTER 2023-08-18 02:10 | Day surgery (SDC) | payer MEDICARE, OTHER ==
[2023-08-18] MEDS ORDERED: DAPTOmycin 400 MG in NS 50 ML IV SCH (06:00)
[2023-08-18 10:31] VITALS: BP 159/72
== END 2023-08-18 10:50 | disposition home or self-care (01) ==
LOC: ATC 02:10
DX: M79.631 Pain in right forearm (principal); M25.531 Pain in right wrist; M79.89 Other specified soft tissue disorders; E11.9 Type 2 diabetes mellitus without complications; I10 Essential (primary) hypertension; F17.210 Nicotine dependence, cigarettes, uncomplicated; Z89.021 Acquired absence of right finger(s)
CPT/HCPCS: 96365; J0878

== ENCOUNTER 2023-08-26 04:07 | Day surgery (SDC) | payer MEDICARE, OTHER ==
[2023-08-26] MEDS ORDERED: DAPTOmycin 400 MG in NS 50 ML IV SCH (06:00)
[2023-08-26 10:28] VITALS: BP 114/74
== END 2023-08-26 10:44 | disposition home or self-care (01) ==
LOC: ATC 04:07
DX: L08.9 Local infection of the skin and subcutaneous tissue, unspecified (principal); S50.811D Abrasion of right forearm, subsequent encounter; E11.69 Type 2 diabetes mellitus with other specified complication; M86.9 Osteomyelitis, unspecified; E11.40 Type 2 diabetes mellitus with diabetic neuropathy, unspecified; I10 Essential (primary) hypertension; F17.210 Nicotine dependence, cigarettes, uncomplicated; Z79.899 Other long term (current) drug therapy
CPT/HCPCS: 96365; J0878

== ENCOUNTER 2023-08-27 02:05 | Day surgery (SDC) | payer MEDICARE, OTHER ==
[2023-08-27] MEDS ORDERED: DAPTOmycin 400 MG in NS 50 ML IV SCH (06:00)
[2023-08-27 10:29] VITALS: BP 107/61
== END 2023-08-27 10:30 | disposition home or self-care (01) ==
LOC: ATC 02:05
DX: S50.811D Abrasion of right forearm, subsequent encounter (principal); L08.9 Local infection of the skin and subcutaneous tissue, unspecified; I10 Essential (primary) hypertension; F17.210 Nicotine dependence, cigarettes, uncomplicated; E11.69 Type 2 diabetes mellitus with other specified complication; M86.8X4 Other osteomyelitis, hand; E11.40 Type 2 diabetes mellitus with diabetic neuropathy, unspecified; Z79.899 Other long term (current) drug therapy; X58.XXXD Exposure to other specified factors, subsequent encounter
CPT/HCPCS: 96365; J0878

== ENCOUNTER 2023-08-28 02:08 | Day surgery (SDC) | payer MEDICARE, OTHER ==
[2023-08-28] MEDS ORDERED: DAPTOmycin 400 MG in NS 50 ML IV SCH (06:00)
[2023-08-28 07:59] VITALS: BP 152/97
== END 2023-08-28 08:20 | disposition home or self-care (01) ==
LOC: ATC 02:08
DX: L08.9 Local infection of the skin and subcutaneous tissue, unspecified (principal); S50.811D Abrasion of right forearm, subsequent encounter; E11.40 Type 2 diabetes mellitus with diabetic neuropathy, unspecified; E11.69 Type 2 diabetes mellitus with other specified complication; M86.9 Osteomyelitis, unspecified; I10 Essential (primary) hypertension; F17.210 Nicotine dependence, cigarettes, uncomplicated; Z79.899 Other long term (current) drug therapy; Z79.84 Long term (current) use of oral hypoglycemic drugs
CPT/HCPCS: 96365; J0878

== ENCOUNTER 2023-08-29 04:44 | Day surgery (SDC) | payer MEDICARE, OTHER ==
[2023-08-29] MEDS ORDERED: DAPTOmycin 400 MG in NS 50 ML IV SCH (06:00)
[2023-08-29 10:46] VITALS: BP 131/102
== END 2023-08-29 11:09 | disposition home or self-care (01) ==
LOC: ATC 04:44
DX: L08.9 Local infection of the skin and subcutaneous tissue, unspecified (principal); S50.811D Abrasion of right forearm, subsequent encounter; E11.69 Type 2 diabetes mellitus with other specified complication; M86.9 Osteomyelitis, unspecified; I12.9 Hypertensive chronic kidney disease with stage 1 through stage 4 chronic kidney disease, or unspecified chronic kidney disease; N18.9 Chronic kidney disease, unspecified; E11.22 Type 2 diabetes mellitus with diabetic chronic kidney disease; E11.40 Type 2 diabetes mellitus with diabetic neuropathy, unspecified; F17.210 Nicotine dependence, cigarettes, uncomplicated; Z79.899 Other long term (current) drug therapy; Z79.84 Long term (current) use of oral hypoglycemic drugs
CPT/HCPCS: 96365; J0878

== ENCOUNTER 2023-08-30 01:24 | Day surgery (SDC) | payer MEDICARE, OTHER ==
[2023-08-30] MEDS ORDERED: DAPTOmycin 400 MG in NS 50 ML IV SCH (06:00)
[2023-08-30 11:20] VITALS: BP 166/82
== END 2023-08-30 11:22 | disposition home or self-care (01) ==
LOC: ATC 01:24
DX: S50.811D Abrasion of right forearm, subsequent encounter (principal); L08.9 Local infection of the skin and subcutaneous tissue, unspecified; I10 Essential (primary) hypertension; E11.59 Type 2 diabetes mellitus with other circulatory complications; M86.8X4 Other osteomyelitis, hand; K21.9 Gastro-esophageal reflux disease without esophagitis; E11.40 Type 2 diabetes mellitus with diabetic neuropathy, unspecified; G89.29 Other chronic pain
CPT/HCPCS: 96365; J0878

== ENCOUNTER 2023-08-31 03:28 | Day surgery (SDC) | payer MEDICARE, OTHER ==
[2023-08-31] MEDS ORDERED: DAPTOmycin 400 MG in NS 50 ML IV SCH (06:00)
[2023-08-31 11:11] VITALS: BP 134/85
[2023-08-31 12:41] LABS: Albumin, Blood 3.8 g/dL (3.4-5.0); Anion Gap 7 mmol/L (3-11); Blood Urea Nitrogen 12 mg/dL (8-24); Bun/Creatinine Ratio 8.8 (12.0-20.0); CO2, Blood 29 mmol/L (21-32); Calcium, Blood 9.3 mg/dL (8.5-10.1); Chloride, Blood 104 mmol/L (98-108); Creatinine, Blood 1.37 mg/dL (0.60-1.20); Glomerular Filtration Rate 60 (60-); Glucose, Blood 104 mg/dL (70-99); Phosphorus, Blood 3.9 mg/dL (2.5-4.9); Potassium, Blood 3.9 mmol/L (3.5-5.5); Sodium, Blood 136 mmol/L (136-145)
== END 2023-08-31 11:28 | disposition home or self-care (01) ==
LOC: ATC 03:28
PROVIDERS: Orthopaedic Surgery Sports Medicine
DX: S50.811D Abrasion of right forearm, subsequent encounter (principal); L08.9 Local infection of the skin and subcutaneous tissue, unspecified; I10 Essential (primary) hypertension; E11.69 Type 2 diabetes mellitus with other specified complication; M86.8X4 Other osteomyelitis, hand; E11.40 Type 2 diabetes mellitus with diabetic neuropathy, unspecified; K21.9 Gastro-esophageal reflux disease without esophagitis; X58.XXXD Exposure to other specified factors, subsequent encounter; Z79.899 Other long term (current) drug therapy
CPT/HCPCS: 80069; 96365; J0878

== ENCOUNTER 2023-09-01 04:27 | Day surgery (SDC) | payer MEDICARE, OTHER ==
[2023-09-01] MEDS ORDERED: DAPTOmycin 400 MG in NS 50 ML IV SCH (06:00)
[2023-09-01 10:20] VITALS: BP 138/95
== END 2023-09-01 10:40 | disposition home or self-care (01) ==
LOC: ATC 04:27
DX: S50.811D Abrasion of right forearm, subsequent encounter (principal); X58.XXXD Exposure to other specified factors, subsequent encounter; L08.9 Local infection of the skin and subcutaneous tissue, unspecified; I10 Essential (primary) hypertension; E78.5 Hyperlipidemia, unspecified; F17.210 Nicotine dependence, cigarettes, uncomplicated; K21.9 Gastro-esophageal reflux disease without esophagitis; E11.40 Type 2 diabetes mellitus with diabetic neuropathy, unspecified; Z79.899 Other long term (current) drug therapy
CPT/HCPCS: 96365; J0878

== ENCOUNTER 2023-09-02 01:40 | Day surgery (SDC) | payer MEDICARE, OTHER ==
[2023-09-02] MEDS ORDERED: DAPTOmycin 400 MG in NS 50 ML IV SCH (06:00)
[2023-09-02 10:20] VITALS: BP 119/50
== END 2023-09-02 10:55 | disposition home or self-care (01) ==
LOC: ATC 01:40
DX: L08.9 Local infection of the skin and subcutaneous tissue, unspecified (principal); S50.811D Abrasion of right forearm, subsequent encounter; E11.40 Type 2 diabetes mellitus with diabetic neuropathy, unspecified; E11.69 Type 2 diabetes mellitus with other specified complication; M86.9 Osteomyelitis, unspecified; I12.9 Hypertensive chronic kidney disease with stage 1 through stage 4 chronic kidney disease, or unspecified chronic kidney disease; E11.22 Type 2 diabetes mellitus with diabetic chronic kidney disease; N18.9 Chronic kidney disease, unspecified; F17.210 Nicotine dependence, cigarettes, uncomplicated; Z79.899 Other long term (current) drug therapy; Z79.84 Long term (current) use of oral hypoglycemic drugs
CPT/HCPCS: 96365; J0878

== ENCOUNTER 2023-09-03 04:14 | Day surgery (SDC) | payer MEDICARE, OTHER ==
[2023-09-03] MEDS ORDERED: DAPTOmycin 400 MG in NS 50 ML IV SCH (06:00)
[2023-09-03 10:48] VITALS: BP 136/79
== END 2023-09-03 11:31 | disposition home or self-care (01) ==
LOC: ATC 04:14
DX: L08.9 Local infection of the skin and subcutaneous tissue, unspecified (principal); S50.811D Abrasion of right forearm, subsequent encounter; I12.9 Hypertensive chronic kidney disease with stage 1 through stage 4 chronic kidney disease, or unspecified chronic kidney disease; N18.9 Chronic kidney disease, unspecified; E11.22 Type 2 diabetes mellitus with diabetic chronic kidney disease; E11.40 Type 2 diabetes mellitus with diabetic neuropathy, unspecified; E11.69 Type 2 diabetes mellitus with other specified complication; M86.9 Osteomyelitis, unspecified; F17.210 Nicotine dependence, cigarettes, uncomplicated; Z79.899 Other long term (current) drug therapy
CPT/HCPCS: 96365; J0878

== ENCOUNTER 2023-09-04 00:19 | Day surgery (SDC) | payer MEDICARE, OTHER ==
[2023-09-04] MEDS ORDERED: DAPTOmycin 400 MG in NS 50 ML IV SCH (06:00)
[2023-09-04 08:44] VITALS: BP 160/98
== END 2023-09-04 09:09 | disposition home or self-care (01) ==
LOC: ATC 00:19
DX: L08.9 Local infection of the skin and subcutaneous tissue, unspecified (principal); S50.811D Abrasion of right forearm, subsequent encounter; I12.9 Hypertensive chronic kidney disease with stage 1 through stage 4 chronic kidney disease, or unspecified chronic kidney disease; E11.22 Type 2 diabetes mellitus with diabetic chronic kidney disease; N18.9 Chronic kidney disease, unspecified; E11.40 Type 2 diabetes mellitus with diabetic neuropathy, unspecified; E11.69 Type 2 diabetes mellitus with other specified complication; M86.9 Osteomyelitis, unspecified; F17.210 Nicotine dependence, cigarettes, uncomplicated; Z79.899 Other long term (current) drug therapy; Z79.84 Long term (current) use of oral hypoglycemic drugs
CPT/HCPCS: 96365; J0878

== ENCOUNTER 2023-09-05 04:43 | Day surgery (SDC) | payer MEDICARE, OTHER ==
[2023-09-05] MEDS ORDERED: DAPTOmycin 400 MG in NS 50 ML IV SCH (06:00)
[2023-09-05 10:38] VITALS: BP 113/97
== END 2023-09-05 11:01 | disposition home or self-care (01) ==
LOC: ATC 04:43
DX: L08.9 Local infection of the skin and subcutaneous tissue, unspecified (principal); S50.811D Abrasion of right forearm, subsequent encounter; I12.9 Hypertensive chronic kidney disease with stage 1 through stage 4 chronic kidney disease, or unspecified chronic kidney disease; E11.22 Type 2 diabetes mellitus with diabetic chronic kidney disease; N18.9 Chronic kidney disease, unspecified; E11.40 Type 2 diabetes mellitus with diabetic neuropathy, unspecified; E11.69 Type 2 diabetes mellitus with other specified complication; M86.9 Osteomyelitis, unspecified; F17.210 Nicotine dependence, cigarettes, uncomplicated; Z79.899 Other long term (current) drug therapy; Z79.84 Long term (current) use of oral hypoglycemic drugs
CPT/HCPCS: 96365; J0878

== ENCOUNTER 2023-09-07 03:18 | Day surgery (SDC) | payer MEDICARE, OTHER ==
[2023-09-07] MEDS ORDERED: DAPTOmycin 400 MG in NS 50 ML IV SCH (06:00)
[2023-09-07 10:43] VITALS: BP 129/73
[2023-09-07 12:41] LABS: Albumin, Blood 3.8 g/dL (3.4-5.0); Anion Gap 7 mmol/L (3-11); Blood Urea Nitrogen 12 mg/dL (8-24); CO2, Blood 27 mmol/L (21-32); Calcium, Blood 9.5 mg/dL (8.5-10.1); Chloride, Blood 106 mmol/L (98-108); Creatinine, Blood 1.34 mg/dL (0.60-1.20); Glomerular Filtration Rate 61 (60-); Glucose, Blood 100 mg/dL (70-99); Phosphorus, Blood 3.9 mg/dL (2.5-4.9); Potassium, Blood 3.9 mmol/L (3.5-5.5); Sodium, Blood 136 mmol/L (136-145)
== END 2023-09-07 10:51 | disposition home or self-care (01) ==
LOC: ATC 03:18
PROVIDERS: Family Medicine
DX: S50.811D Abrasion of right forearm, subsequent encounter (principal); X58.XXXD Exposure to other specified factors, subsequent encounter; L08.9 Local infection of the skin and subcutaneous tissue, unspecified; Z98.890 Other specified postprocedural states; I10 Essential (primary) hypertension; E11.40 Type 2 diabetes mellitus with diabetic neuropathy, unspecified; K21.9 Gastro-esophageal reflux disease without esophagitis; F17.210 Nicotine dependence, cigarettes, uncomplicated; Z79.899 Other long term (current) drug therapy
CPT/HCPCS: 80069; 96365; J0878

== ENCOUNTER 2023-09-08 02:49 | Day surgery (SDC) | payer MEDICARE, OTHER ==
[2023-09-08] MEDS ORDERED: DAPTOmycin 400 MG in NS 50 ML IV SCH (06:00)
[2023-09-08 10:34] VITALS: BP 147/78
== END 2023-09-08 11:16 | disposition home or self-care (01) ==
LOC: ATC 02:49
DX: L08.9 Local infection of the skin and subcutaneous tissue, unspecified (principal); S50.811D Abrasion of right forearm, subsequent encounter; X58.XXXD Exposure to other specified factors, subsequent encounter; I10 Essential (primary) hypertension; E11.40 Type 2 diabetes mellitus with diabetic neuropathy, unspecified; Z79.899 Other long term (current) drug therapy
CPT/HCPCS: 96365; J0878

== ENCOUNTER 2023-09-10 02:32 | Day surgery (SDC) | payer MEDICARE, OTHER ==
[2023-09-10] MEDS ORDERED: DAPTOmycin 400 MG in NS 50 ML IV SCH (06:00)
[2023-09-10 10:29] VITALS: BP 123/60
== END 2023-09-10 10:50 | disposition home or self-care (01) ==
LOC: ATC 02:32
DX: L08.9 Local infection of the skin and subcutaneous tissue, unspecified (principal); S50.811D Abrasion of right forearm, subsequent encounter; X58.XXXD Exposure to other specified factors, subsequent encounter; E11.9 Type 2 diabetes mellitus without complications; I10 Essential (primary) hypertension; F17.210 Nicotine dependence, cigarettes, uncomplicated; Z98.890 Other specified postprocedural states; Z79.899 Other long term (current) drug therapy
CPT/HCPCS: 96365; J0878

== ENCOUNTER 2023-09-11 02:57 | Day surgery (SDC) | payer MEDICARE, OTHER ==
[2023-09-11] MEDS ORDERED: DAPTOmycin 400 MG in NS 50 ML IV SCH (06:00)
[2023-09-11 08:46] VITALS: BP 161/93
== END 2023-09-11 09:01 | disposition home or self-care (01) ==
LOC: ATC 02:57
DX: S68.119D Complete traumatic metacarpophalangeal amputation of unspecified finger, subsequent encounter (principal); L08.9 Local infection of the skin and subcutaneous tissue, unspecified; I10 Essential (primary) hypertension; F17.210 Nicotine dependence, cigarettes, uncomplicated; E11.40 Type 2 diabetes mellitus with diabetic neuropathy, unspecified; E11.69 Type 2 diabetes mellitus with other specified complication; M86.8X4 Other osteomyelitis, hand; G89.29 Other chronic pain; X58.XXXD Exposure to other specified factors, subsequent encounter
CPT/HCPCS: 96365; J0878

== ENCOUNTER 2023-09-12 00:17 | Day surgery (SDC) | payer MEDICARE, OTHER ==
[2023-09-12 10:31] VITALS: BP 146/77
== END 2023-09-12 11:02 | disposition home or self-care (01) ==
LOC: ATC 00:17
DX: M67.89 Other specified disorders of synovium and tendon, multiple sites (principal); I12.9 Hypertensive chronic kidney disease with stage 1 through stage 4 chronic kidney disease, or unspecified chronic kidney disease; E11.22 Type 2 diabetes mellitus with diabetic chronic kidney disease; N18.9 Chronic kidney disease, unspecified; E11.40 Type 2 diabetes mellitus with diabetic neuropathy, unspecified; K21.9 Gastro-esophageal reflux disease without esophagitis; F17.210 Nicotine dependence, cigarettes, uncomplicated; Z89.021 Acquired absence of right finger(s); Z79.899 Other long term (current) drug therapy

== ENCOUNTER 2023-09-13 00:52 | Day surgery (SDC) | payer MEDICARE, OTHER ==
[2023-09-13 10:39] VITALS: BP 151/81
== END 2023-09-13 11:20 | disposition home or self-care (01) ==
LOC: ATC 00:52
DX: S68.119D Complete traumatic metacarpophalangeal amputation of unspecified finger, subsequent encounter (principal); E11.69 Type 2 diabetes mellitus with other specified complication; M86.8X4 Other osteomyelitis, hand; I10 Essential (primary) hypertension; E11.40 Type 2 diabetes mellitus with diabetic neuropathy, unspecified; K21.9 Gastro-esophageal reflux disease without esophagitis; Z98.890 Other specified postprocedural states; X58.XXXD Exposure to other specified factors, subsequent encounter

== ENCOUNTER 2023-09-14 04:31 | Day surgery (SDC) | payer MEDICARE, OTHER ==
[2023-09-14 10:43] VITALS: BP 158/91
== END 2023-09-14 11:09 | disposition home or self-care (01) ==
LOC: ATC 04:31
DX: S68.119D Complete traumatic metacarpophalangeal amputation of unspecified finger, subsequent encounter (principal); Z98.890 Other specified postprocedural states; I10 Essential (primary) hypertension; E11.40 Type 2 diabetes mellitus with diabetic neuropathy, unspecified; F17.210 Nicotine dependence, cigarettes, uncomplicated; Z79.899 Other long term (current) drug therapy; Z79.84 Long term (current) use of oral hypoglycemic drugs

== ENCOUNTER 2023-09-15 03:26 | Day surgery (SDC) | payer MEDICARE, OTHER ==
[2023-09-15] MEDS ORDERED: DAPTOmycin 400 MG in NS 50 ML IV SCH (06:00)
[2023-09-15 10:00] VITALS: BP 125/84
== END 2023-09-15 10:18 | disposition home or self-care (01) ==
LOC: ATC 03:26
DX: S68.119D Complete traumatic metacarpophalangeal amputation of unspecified finger, subsequent encounter (principal); I10 Essential (primary) hypertension; E11.40 Type 2 diabetes mellitus with diabetic neuropathy, unspecified; K21.9 Gastro-esophageal reflux disease without esophagitis; F17.210 Nicotine dependence, cigarettes, uncomplicated; Z79.899 Other long term (current) drug therapy; Z89.021 Acquired absence of right finger(s); Z98.890 Other specified postprocedural states
CPT/HCPCS: 96365; J0878

== ENCOUNTER 2023-09-16 05:07 | Day surgery (SDC) | payer MEDICARE, OTHER ==
[2023-09-16 10:26] VITALS: BP 115/70
== END 2023-09-16 10:45 | disposition home or self-care (01) ==
LOC: ATC 05:07
DX: S68.119D Complete traumatic metacarpophalangeal amputation of unspecified finger, subsequent encounter (principal); E11.69 Type 2 diabetes mellitus with other specified complication; M86.9 Osteomyelitis, unspecified; Z98.890 Other specified postprocedural states; I10 Essential (primary) hypertension; E11.9 Type 2 diabetes mellitus without complications; K21.9 Gastro-esophageal reflux disease without esophagitis; G89.29 Other chronic pain; Z79.899 Other long term (current) drug therapy; X58.XXXD Exposure to other specified factors, subsequent encounter

== ENCOUNTER 2023-09-17 03:39 | Day surgery (SDC) | payer MEDICARE, OTHER ==
[2023-09-17 10:35] VITALS: BP 128/65
== END 2023-09-17 11:05 | disposition home or self-care (01) ==
LOC: ATC 03:39
DX: S68.119D Complete traumatic metacarpophalangeal amputation of unspecified finger, subsequent encounter (principal); X58.XXXD Exposure to other specified factors, subsequent encounter; Z98.890 Other specified postprocedural states; E11.69 Type 2 diabetes mellitus with other specified complication; M86.9 Osteomyelitis, unspecified; E11.40 Type 2 diabetes mellitus with diabetic neuropathy, unspecified; I12.9 Hypertensive chronic kidney disease with stage 1 through stage 4 chronic kidney disease, or unspecified chronic kidney disease; E11.22 Type 2 diabetes mellitus with diabetic chronic kidney disease; N18.9 Chronic kidney disease, unspecified; G89.29 Other chronic pain; K21.9 Gastro-esophageal reflux disease without esophagitis; F17.210 Nicotine dependence, cigarettes, uncomplicated; Z79.899 Other long term (current) drug therapy

== ENCOUNTER 2023-09-18 03:12 | Day surgery (SDC) | payer MEDICARE, OTHER ==
[2023-09-18 08:55] VITALS: BP 171/71
== END 2023-09-18 09:15 | disposition home or self-care (01) ==
LOC: ATC 03:12
DX: S68.119D Complete traumatic metacarpophalangeal amputation of unspecified finger, subsequent encounter (principal); X58.XXXD Exposure to other specified factors, subsequent encounter; E11.69 Type 2 diabetes mellitus with other specified complication; M86.9 Osteomyelitis, unspecified; I12.9 Hypertensive chronic kidney disease with stage 1 through stage 4 chronic kidney disease, or unspecified chronic kidney disease; E11.22 Type 2 diabetes mellitus with diabetic chronic kidney disease; N18.9 Chronic kidney disease, unspecified; F17.210 Nicotine dependence, cigarettes, uncomplicated; E11.40 Type 2 diabetes mellitus with diabetic neuropathy, unspecified; G89.29 Other chronic pain; K21.9 Gastro-esophageal reflux disease without esophagitis; Z79.899 Other long term (current) drug therapy

== ENCOUNTER 2023-09-19 03:58 | Day surgery (SDC) | payer MEDICARE, OTHER ==
[2023-09-19 10:44] VITALS: BP 171/88
== END 2023-09-19 11:09 | disposition home or self-care (01) ==
LOC: ATC 03:58
DX: S68.119D Complete traumatic metacarpophalangeal amputation of unspecified finger, subsequent encounter (principal); E11.69 Type 2 diabetes mellitus with other specified complication; M86.9 Osteomyelitis, unspecified; I10 Essential (primary) hypertension; E11.40 Type 2 diabetes mellitus with diabetic neuropathy, unspecified; X58.XXXD Exposure to other specified factors, subsequent encounter

== ENCOUNTER → 2024-05-26 | Outpatient (CLI) | payer MEDICARE, OTHER ==
[~2024-05-26] MED LIST changes: +AMOX875 PO; +ANORO ELLIPTA1 EACH INH; +FURO20 PO; +LORA1 PO; +METH5 PO; -METHADONE HCL10 M9 PO; +Percocet 5-3251 EACH PO; -ROXICODONE15 MG PO
== END ==
LOC: LAB 16:01 → LAB SHORT 16:01
DX: L03.011 Cellulitis of right finger (principal)
CPT/HCPCS: 87070; 87075; 87077; 87147; 87186; 87205

== ENCOUNTER 2024-05-30 12:05 | Day surgery (SDC) | payer MEDICARE, OTHER ==
[~2024-05-30] VITALS: Ht 195.6 cm; Wt 106.6 kg
[~2024-05-30 12:05] MED LIST changes: -ANORO ELLIPTA1 EACH INH; +CeFAZolin Sodium 2,000 MG VIAL ONE; +CeFAZolin Sodium 2,000 MG in NS 100 ML IV SCH; +Glycopyrrolate 0.2 MG/ML 5ML VIAL ONE; +Lactated Ringer's 1,000 ML IV SCH; +Tranexamic Acid 1,000 MG in NS 100 ML IV SCH; +propofoL 20 ML IV ONE
[2024-05-30] MEDS ORDERED: ANORO ELLIPTA1 EACH INH (12:38)
[2024-05-30 12:52] VITALS: BP 148/85
--- NOTE | 2024-05-30 13:06 | NUR ---
Ambulatory in Day Surgery History, Chart, Medications and Allergies reviewed before start of procedure. Pre-Op teaching done. Pt verbalizes understanding. Patient States Post-Procedure ride home has been arranged.
[2024-05-30] MEDS ORDERED: Lidocaine HCl 1% 30 ML SDV ONE (13:09)
[2024-05-30] MEDS ORDERED: Bupivacaine 0.5% HCl 5 MG/ML 30MLVIAL ONE (13:10)
[2024-05-30] MEDS ORDERED: Midazolam HCl 1MG / ML 2ML Vial ONE (13:20)
[2024-05-30] MEDS ORDERED: FentaNYL Citrate 50 MCG/ML 2 ML Injection ONE (13:20)
[2024-05-30] MEDS ORDERED: Labetalol HCL 5 MG/ML 4ML Injection (Single Dose) ONE (13:40)
[2024-05-30 13:56] VITALS: BP 179/80
[2024-05-30 14:05] VITALS: BP 186/85
[2024-05-30] MEDS ORDERED: OxyCODONE HCL 5 MG TAB PO PRN (14:10)
[2024-05-30 14:20] VITALS: BP 171/92
[2024-05-30 14:45] VITALS: BP 170/96
--- NOTE | 2024-05-30 14:55 | NUR ---
Patient up to Ambulate independently. Gait steady STAND BY ASSIST RELATED TO FALL RISK POST PROCEDURE. Discharge instructions reviewed with patient. Patient verbalizes understanding. Copy given to patient's to take home. ICE PACK GIVEN TO PT PER ORDERS. PT USED RESTROOM WITHOUT ISSUES. DRESSING CDI. NO COMPLAINTS OF DISCOMFORT. Discharged via wheelchair to private car for ride home WITH .
== END 2024-05-30 14:55 | disposition home or self-care (01) ==
LOC: ORSCMMR 12:05 → ORD 13:30 → ORSCMMR 13:30
PROVIDERS: Orthopaedic Surgery Sports Medicine
PROC: 0X6T0Z3 Detachment at Left Ring Finger, Low, Open Approach (ICD-10-PCS; principal; 2024-05-30 13:30)
DX: M86.141 Other acute osteomyelitis, right hand (principal); E11.42 Type 2 diabetes mellitus with diabetic polyneuropathy; F17.210 Nicotine dependence, cigarettes, uncomplicated; J44.9 Chronic obstructive pulmonary disease, unspecified; I48.91 Unspecified atrial fibrillation; Z79.84 Long term (current) use of oral hypoglycemic drugs; Z79.899 Other long term (current) drug therapy; E78.5 Hyperlipidemia, unspecified; I10 Essential (primary) hypertension; K21.9 Gastro-esophageal reflux disease without esophagitis
CPT/HCPCS: 82947; 88305; 93005; 93010; A9270; J0690; J2250; J2704; J3010; J7120